=== PATIENT | male | born 1985 | race African-American/Black ===

== ENCOUNTER 2021-12-19 18:25 | Emergency (ER) | payer SELFPAY ==
[2021-12-19] MEDS ORDERED: Cephalexin 250 MG/5 ML Susp 100 ML Bottle PO ONE (18:59)
== END 2021-12-19 19:22 | disposition home or self-care (01) ==
LOC: MW.ED 18:25
DX: T23.061A Burn of unspecified degree of back of right hand, initial encounter (principal); X08.8XXA Exposure to other specified smoke, fire and flames, initial encounter
CPT/HCPCS: 99283